=== PATIENT | male | born 1995 | race African-American/Black ===

== ENCOUNTER 2019-06-07 08:18 | Emergency (ER) | payer OTHER, MEDICAID ==
[~2019-06-07] VITALS: Ht 177.8 cm; Wt 81.6 kg
[2019-06-07 11:04] VITALS: BP 130/87
== END 2019-06-07 11:19 | disposition home or self-care (01) ==
LOC: ER 08:18
DX: S39.012A Strain of muscle, fascia and tendon of lower back, initial encounter (principal); V43.52XA Car driver injured in collision with other type car in traffic accident, initial encounter; Y93.I9 Activity, other involving external motion; Y92.410 Unspecified street and highway as the place of occurrence of the external cause; Y99.8 Other external cause status
CPT/HCPCS: 72100

== ENCOUNTER 2019-08-10 05:25 | Emergency (ER) | payer SELFPAY ==
[~2019-08-10] VITALS: Ht 177.8 cm; Wt 81.6 kg
[2019-08-10 05:49] VITALS: BP 131/78
[2019-08-10] MEDS ORDERED: IBUPROFEN 800 MG TAB PO ONE (08:15)
== END 2019-08-10 08:22 | disposition home or self-care (01) ==
LOC: ER 05:25
DX: S93.401A Sprain of unspecified ligament of right ankle, initial encounter (principal); V28.0XXA Motorcycle driver injured in noncollision transport accident in nontraffic accident, initial encounter; Y93.89 Activity, other specified; Y99.8 Other external cause status; Y92.89 Other specified places as the place of occurrence of the external cause
CPT/HCPCS: 73610

== ENCOUNTER 2024-08-11 12:46 | Emergency (ER) | payer MEDICAID ==
[~2024-08-11] VITALS: Ht 170.2 cm; Wt 88.6 kg
[2024-08-11 13:08] VITALS: BP 144/93
[2024-08-11 13:12] VITALS: PULSE 85
[2024-08-11] MEDS ORDERED: FAMOTIDINE (10MG/ML) 2ML VL IV ONE (13:30)
[2024-08-11] MEDS ORDERED: KETOROLAC TROMETH 30 MG/ML 1ML VIAL IV ONE (13:30)
[2024-08-11] MEDS ORDERED: DexAMETHasone SOD PHOS 10MG/1ML VIAL INJ IV ONE (13:30)
[2024-08-11 14:13] LABS: Basophils # (auto) 0.1 10 ^3/uL (0-0.2); Basophils % (auto) 0.8 % (0.0-2.0); Eosinophils # (auto) 0.1 10 ^3/uL (0-0.8); Eosinophils % (auto) 0.6 % (0.0-7.0); Hematocrit 50.2 % (41.0-53.0); Hemoglobin 17.2 g/dL (13.5-17.5); Lymphocytes # (auto) 2.1 10 ^3/uL (0.4-5.4); Lymphocytes % (auto) 18.3 % (10.0-50.0); Mean Corpuscular Hgb Conc. 34.3 g/dL (32.0-36.0); Mean Corpuscular Volume 93.4 fL (80.0-100.0); Monocytes # (auto) 0.9 10 ^3/uL (0-1.3); Monocytes % (auto) 7.7 % (0.0-12.0); Neutrophils # (auto) 8.2 10 ^3/uL (1.6-8.6); Neutrophils % (auto) 72.6 % (37.0-80.0); Platelet Count (auto) 353 10^3/uL (140-450); Red Blood Cells 5.38 10^6/uL (4.5-5.90); Red Cell Distribution Width 13.3 % (11.8-14.3); White Blood Cell 11.3 10^3/uL (4.4-10.8)
--- NOTE | 2024-08-11 14:29 | ED.PDOC ---
SOB-HPI HPI Comments 28 y.o male presents to the ED for a chief complaint of SOB associated with a productive cough that started one day ago. Patient reports prior similar episode, was evaluated at the hospital but is unable to recall diagnose then. Patient is able to complete full sentences, denies chest pain, fever, chills, nausea, vomiting, pain, phlegm output. Patient is currently saturating at 98% on room air. Patient denies any medical history of allergies. Patient mentions history of tobacco use. Chief Complaint: Shortness of Breath Time Seen by MD: 13:50 Primary Care Provider: DR. KRISHNAN Reviewed notes: Nurses Notes, Medications, Allergies Information Source: Patient Mode of Arrival: Ambulatory Severity: Moderate Timing: Days (1) Duration: Since onset Context: At Rest PE Risk Factors: None History of: None Modifying Factors: Nothing Associated Signs and Symptoms: Cough If cough with SOB: Productive Past Medical History PAST MEDICAL HISTORY: Denies Surgical History: Denies all surgeries Family History Family History: Reviewed,noncontributory to illness Social History Smoker: Cigarettes Alcohol: Denies ETOH Use Drugs: Denies Drug Use Lives In: Home Constitutional: denies: chills, diaphoresis, fatigue, fever, malaise, sweats, weakness, others EENTM: denies: blurred vision, double vision, ear bleeding, ear discharge, ear drainage, ear pain, ear ringing, eye pain, eye redness, hearing loss, mouth pain, mouth swelling, nasal discharge, nose bleeding, nose congestion, nose pain, photophobia, tearing, throat pain, throat swelling, voice changes, others Respiratory: reports: cough, SOB at rest, shortness of breath, SOB with excertion; denies: hemoptysis, orthopnea, stridor, wheezing, others Cardiovascular: denies: chest pain, dizzy spells, diaphoresis, Dyspnea on exertion, edema, irregular heart beat, left arm pain, lightheadedness, palpitations, PND, syncope, others Gastrointestinal: denies: abdomen distended, abdominal pain, blood streaked bowels, constipated, diarrhea, dysphagia, difficulty swallowing, hematemesis, melena, nausea, poor appetite, poor fluid intake, rectal bleeding, rectal pain, vomiting, others Genitourinary: denies: burning, dysuria, flank pain, frequency, hematuria, incontinence, penile discharge, penile sore, pain, testicle pain, testicle swelling, urgency, others Neurological: denies: dizziness, fainting, headache, left sided numbness, left sided weakness, numbness, paresthesia, pre-existing deficit, right sided numbness, right sided weakness, seizure, speech problems, tingling, tremors, wea kness, others Musculoskeletal: denies: back pain, gout, joint pain, joint swelling, muscle pain, muscle stiffness, neck pain, others Integumetry: denies: bruises, change in color, change in hair/nails, dryness, l aceration, lesions, lumps, rash, wounds, others Allergic/Immunocompromised: denies: Difficulty Healing, Frequent Infections, Hives, Itching, others Hematologic/Lymphatic: denies: anemia, blood clots, easy bleeding, easy bruising, swollen glands, others Endocrine: denies: excessive hunger, excessive sweating, excessive thirst, excessive urination, flushing, intolerance to cold, intolerance to heat, unexplained weight gain, unexplained weight loss, others Psychiatric: denies: anxiety, bipolar disorder, depression, hopeless, panic disorder, schizophrenia, sleepless, suicidal, others Physical Exam General Appearance: No Apparent Distress HEENT: Other (Pupils symmetric, moist mucous membranes, no facial asymmetry) Neck: Full Range of Motion, Non-Tender, Normal Inspection Respiratory: Chest Non-Tender, Decreased Breath Sounds, No Accessory Muscle Use, No Respiratory Distress, Normal Breath Sounds Cardiovascular: No Edema, No JVD, Regular Rate/Rhythm Breast Exam: Deferred Gastrointestinal: Non Tender, Soft Genitalia: Deferred Pelvic: Deferred Rectal: Deferred Extremities: Normal inspection, Normal range of motion, Non-tender, No pedal edema Neurologic: Alert (Oriented x4), Normal Affect, Normal Mood, Other (Ambulatory without difficulty. No gross focal deficit.) Cerebellar Function: NOT DONE Reflexes: NOT DONE Skin: Dry, Normal Color, Warm Lymphatic: NOT DONE EKG EKG : Comments Sinus rhythm, rate 85, normal intervals, normal axis, LVH by voltage, upsloping ST elevation in leads one and aVL consistent with early repolarization, n onspecific T changes. Was a procedure done? Was a procedure done?: No Differential Dx Differential Diagnosis: Asthma, CHF, COPD, Myocardial infarction, Panic Attack, Pneumonia, Pulmonary Embolism, Respiratory Distress, Sinusitis, URI X-Ray, Labs, Meds, VS Vital Signs Date Time Temp Pulse Resp B/P (MAP) Pulse Ox O2 Delivery O2 Flow Rate FiO2 08/11/24 14:43 18 96 Room Air* 0 21 08/11/24 13:12 85 08/11/24 13:08 98.2 91 17 144/93 (110) 98 08/11/24 13:07 Room Air 0 Lab Test 08/11/24 15:13 08/11/24 13:45 Range/Units Troponin I High Sensitivity < 3 L < 3 L </=54 ng/L White Blood Count 11.3 H 4.4-10.8 10^3/uL Red Blood Count 5.38 4.5-5.90 10^6/uL Hemoglobin 17.2 13.5-17.5 g/dL Hematocrit 50.2 41.0-53.0 % Mean Corpuscular Volume 93.4 80.0-100.0 fL Mean Corpuscular Hemoglobin 32.0 28.0-32.0 pg Mean Corpuscular Hemoglobin Concent 34.3 32.0-36.0 g/dL Red Cell Distribution Width 13.3 11.8-14.3 % Platelet Count 353 140-450 10^3/uL Mean Platelet Volume 7.3 6.9-10.8 fL Neutrophils (%) (Auto) 72.6 37.0-80.0 % Lymphocytes (%) (Auto) 18.3 10.0-50.0 % Monocytes (%) (Auto) 7.7 0.0-12.0 % Eosinophils (%) (Auto) 0.6 0.0-7.0 % Basophils (%) (Auto) 0.8 0.0-2.0 % Neutrophils # (Auto) 8.2 1.6-8.6 10 ^3/uL Lymphocytes # (Auto) 2.1 0.4-5.4 10 ^3/uL Monocytes # (Auto) 0.9 0-1.3 10 ^3/uL Eosinophils # (Auto) 0.1 0-0.8 10 ^3/uL Basophils # (Auto) 0.1 0-0.2 10 ^3/uL Nucleated Red Blood Cells 0.0 % D-Dimer, Quantitative < 0.19 0.0-0.49 mg/L FEU Sodium Level 138 136-145 mmol/L Potassium Level 5.0 3.5-5.1 mmol/L Chloride Level 105 98-107 mmol/L Carbon Dioxide Level 26 20-31 mmol/L Anion Gap 7 5-15 Blood Urea Nitrogen 12 9-23 mg/dL Creatinine 1.10 0.700-1.30 mg/dL Glomerular Filtration Rate Calc 94 >90 mL/min BUN/Creatinine Ratio 10.9 10.0-20.0 Serum Glucose 80 74-106 mg/dL Calcium Level 10.3 8.7-10.4 mg/dL Total Bilirubin 0.7 0.2-1.0 mg/dL Aspartate Amino Transferase (AST) 11 L 13-40 U/L Alanine Aminotransferase (ALT) 14 7-40 U/L Alkaline Phosphatase 68 46-116 U/L B-Type Natriuretic Peptide 7.38 0-100 pg/mL Total Protein 7.3 5.7-8.2 g/dL Albumin 5.0 H 3.2-4.8 g/dL Current Medications Medications (Trade) Dose Ordered Sig/Scottie Route Start Time Stop Time Status Last Admin Albuterol (Ventolin Medneb) 5 mg ONCE ONCE NEB 08/11/24 13:30 08/11/24 13:31 DC 08/11/24 14:43 Ipratropium Lamar (Atrovent Medneb) 0.5 mg ONCE ONCE NEB 08/11/24 13:30 08/11/24 13:31 DC 08/11/24 14:43 [place] [id number] Ph: [phone] DIAGNOSTIC IMAGING Diagnostic Imaging Report : [id number] Signed PATIENT: TYRON PAEZ ACCT: [id number] UNIT: [id number] : 1995 LOC: ER ROOM / BED: / AGE / SEX: 28 / M ADM STATUS: REG ER SERVICE [id number] ORDERING PHYSICIAN: DIANA CARCAMO MD PROCEDURE(s): CXR1 - CHEST XRAY 1 VIEW REASON: cp sob ORDER NUMBER(s): [id number], ACCESSION NUMBER(s): [id number] Chest x-ray Technique: AP CLINICAL INDICATION: Shortness of breath FINDINGS: Heart size is normal. No infiltrates or effusions. No bony thoracic abnormalities. IMPRESSION: 1. Normal chest x-ray. ATED BY: PRANEETH HANSEN MD DICTATED DATE/TIME: 08/11/241435 SIGNED BY: PRANEETH HANSEN MD SIGNED DATE/TIME: 08/11/241435 CC: X-Ray, Labs, Meds, VS Comment 28-year-old male with no significant past medical history complaining of shortness of breath and pleuritic chest discomfort associated with cough. Vitals remarkable for BP 144/93 Exam remarkable for diminished breath sounds at both bases, no respiratory distress EKG sinus rhythm, nonspecific T changes Chest x-ray unremarkable CBC, basic metabolic panel, BNP, D-dimer and two 0 troponins unremarkable for any abnormality of acute significance Patient treated with the following in the ED: Albuterol 5 mg/Atrovent 0.5 mg nebulized, Decadron 10 mg IV, Toradol 30 mg IV On re-evaluation, patient is resting comfortably with stable vitals, not short of breath or in respiratory distress. Hospitalization was considered, however patient had rapid improvement of symptoms with treatment in the ED, and I no longer feel hospitalization is necessary. Patient now appears stable for discharge with close outpatient follow up with his primary physician. Rx albuterol, ibuprofen, Mucinex Time of 1ST Reevaluation: 14:25 Reevaluation 1ST: Unchanged Patient Education/Counseling: Diagnosis, Treatment, Prognosis Family Education/Counseling: No Family Present Departure 1 Departure Time of Disposition: 18:44 Impression: Primary Impression: Acute cough Additional Impression: Bronchospasm Disposition: HOME / SELF CARE / HOMELESS Condition: Stable Additional Instructions: Your blood tests, including heart testing and screening tests for blood clots for unremarkable. Chest x-ray was normal. I have prescribed medication for your symptoms. Follow up with your primary doctor in 1-2 days. e-Prescriptions Guaifenesin (Mucinex) 600 Mg Tab 1 TAB PO BID PRN, #14 TAB prn cough/congestion Prov: DIANA CARCAMO MD 08/11/24 Ibuprofen Micronized (Ibuprofen) 600 Mg Tab 600 MG PO Q6HP PRN, #30 TAB prn pain Prov: DIANA CARCAMO MD 08/11/24 Albuterol Sulfate (Albuterol Sulfate Hfa) 108 Mcg/Act Aer 2 PUFF IN Q6HP PRN, #1 AER prn difficulty breathing Prov: DIANA CARCAMO MD 08/11/24 Discharged With: Relative Critical Care Note Critical Care Time?: No Stability Stability form required: No Heart Score Heart Score: Heart Score Response (Comments) Value History N/A 0 EKG N/A 0 Age N/A 0 Risk Factors N/A 0 Troponin N/A 0 Total 0 I personally scribed for DIANA CARCAMO MD ([facility]) on 08/11/24 at 14:29. Electronically submitted by Mona Campbell ([facility]). I personally scribed for DIANA CARCAMO MD ([facility]) on 08/11/24 at 14:33. Electronically submitted by Mona Campbell ([facility]). I personally scribed for DIANA CARCAMO MD ([facility]) on 08/11/24 at 14:54. Electronically submitted by Mona Campbell ([facility]). DIANA CARCAMO MD Aug 11, 2024 14:29
--- NOTE | 2024-08-11 14:38 | DVH ---
Chest x-ray Technique: AP CLINICAL INDICATION: Shortness of breath FINDINGS: Heart size is normal. No infiltrates or effusions. No bony thoracic abnormalities. IMPRESSION: 1. Normal chest x-ray.
[2024-08-11 14:39] LABS: Alanine Aminotransferase 14 U/L (7-40); Alkaline Phosphatase 68 U/L (46-116); Anion Gap 7 (5-15); BUN/Creatinine Ratio 10.9 (10.0-20.0); Blood Urea Nitrogen 12 mg/dL (9-23); Calcium 10.3 mg/dL (8.7-10.4); Carbon Dioxide 26 mmol/L (20-31); Chloride 105 mmol/L (98-107); Glucose 80 mg/dL (74-106); Sodium 138 mmol/L (136-145)
[2024-08-11 14:40] LABS: Bilirubin, Total 0.7 mg/dL (0.2-1.0); Total Protein 7.3 g/dL (5.7-8.2)
[2024-08-11 14:43] VITALS: RESP 18; O2SAT 96
[2024-08-11] MEDS: ALBUTEROL SULF 2.5 MG/0.5ML(0.5%) NEB SOLN NEB ONE (14:43)
[2024-08-11] MEDS: IPRATROPIUM BROM 0.5 MG/2.5ML INH SOL NEB ONE (14:43)
[2024-08-11 14:46] LABS: Aspartate Aminotransferase 11 U/L (13-40)
[2024-08-11] MEDS ORDERED: ALBU108A5 IN (18:46)
[2024-08-11] MEDS ORDERED: GUAI600T78 PO (18:46)
[2024-08-11] MEDS ORDERED: IBUP1TAB5 PO (18:46)
--- NOTE | 2024-08-12 01:37 | ECG ---
[facility] Test Date: 2024-08-11 Test Time: 13:12:41 Pat Name: TYRON PAEZ Department: ER Room: Gender: M House Mother: EDWIN : 1995 Requested By: EMERGENCY EMERGENCY Order Number: [id number] Reading MD: Gianni Gonzalez Measurements Intervals [place] Rate: 85 P: 42 ME: 131 QRS: 31 QRSD: 86 T: -14 QT: 343 QTc: 408 Interpretive Statements Sinus rhythm LVH by voltage Inferior infarct, age indeterminate Lateral infarct, acute Electronically Signed On 08-14-2024 10:43:52 PST by Gianni Gonzalez Please click the below link to view image of tracing.
== END 2024-08-11 19:33 | disposition home or self-care (01) ==
LOC: ER 12:46
DX: J98.01 Acute bronchospasm (principal); R05.1 Acute cough; F17.210 Nicotine dependence, cigarettes, uncomplicated
CPT/HCPCS: 36415; 71045; 80053; 83880; 84484; 85025; 85379; 93005; 94640